=== PATIENT | female | born 1965 | race Caucasian/White ===

== ENCOUNTER 2021-08-26 19:57 | Emergency (ER) | payer OTHER ==
[2021-08-26 20:35] LABS: Bilirubin Neg (Negative); Blood, Urine 250 (Negative); Clarity Slightly Cloudy (Clear); Glucose, Urine (Dipstick) Normal (Negative); Ketone, Urine Negative (Negative); Leukocyte 500 (Negative); Nitrite Negative (Negative); Protein, Urine (Dipstick) 30 mg/dl (Neg-Trace); Specific Gravity, Urine 1.015 (1.002-1.036); Urobilinogen Normal mg/dL (Less than 2)
[2021-08-26 20:46] LABS: Bacteria/HPF 2+ HPF (None Seen); Mucous/LPF None Seen LPF (<2+); Squamous Epithelial 0-3 HPF (0-3); WBC/HPF Greater than 50 HPF (0-3)
== END 2021-08-26 20:48 | disposition home or self-care (01) ==
LOC: CSHERS 19:57
DX: N39.0 Urinary tract infection, site not specified (principal); K21.9 Gastro-esophageal reflux disease without esophagitis; J44.9 Chronic obstructive pulmonary disease, unspecified; G47.30 Sleep apnea, unspecified
CPT/HCPCS: 81003; 81015; 87077; 87086; 87186; 99283

== ENCOUNTER 2022-07-02 09:08 | Outpatient (CLI) | payer OTHER, MEDICAID | END 2022-07-02 09:09 | disposition home or self-care (01) | LOC: CSHMRI 09:08 | PROVIDERS: ATTEND Nurse Anesthetist, Certified Registered | DX: M54.16 Radiculopathy, lumbar region (principal); M47.816 Spondylosis without myelopathy or radiculopathy, lumbar region; Z98.890 Other specified postprocedural states | CPT/HCPCS: 72148 ==

== ENCOUNTER 2023-09-27 09:25 | Day surgery (SDC) | payer OTHER, MEDICAID ==
[2023-09-26 11:17] VITALS: BMI 25.7
[2023-09-27] MEDS ORDERED: Lidocaine 2% MPF 10 ML AMP (For Epidural Use) ONE (10:50)
[2023-09-27] MEDS ORDERED: PROPOFOL 20 ML ONE ×2 (10:51)
== END 2023-09-27 12:17 | disposition home or self-care (01) ==
LOC: CSHSDC 09:25
PROVIDERS: ATTEND Surgery
PROC: 0DB68ZX Excision of Stomach, Via Natural or Artificial Opening Endoscopic, Diagnostic (ICD-10-PCS; principal; 2023-09-27)
DX: K28.7 Chronic gastrojejunal ulcer without hemorrhage or perforation (principal); K44.9 Diaphragmatic hernia without obstruction or gangrene; K29.50 Unspecified chronic gastritis without bleeding; K43.2 Incisional hernia without obstruction or gangrene; K21.00 Gastro-esophageal reflux disease with esophagitis, without bleeding; K91.2 Postsurgical malabsorption, not elsewhere classified; K82.9 Disease of gallbladder, unspecified; M10.9 Gout, unspecified; F41.9 Anxiety disorder, unspecified; M47.816 Spondylosis without myelopathy or radiculopathy, lumbar region; E66.01 Morbid (severe) obesity due to excess calories; M79.7 Fibromyalgia; Z98.0 Intestinal bypass and anastomosis status; Z79.51 Long term (current) use of inhaled steroids; Z79.899 Other long term (current) drug therapy; Z68.28 Body mass index [BMI] 28.0-28.9, adult
CPT/HCPCS: 43239; J2704; 88305; 88342